=== PATIENT | female | born 1970 | race Caucasian/White ===

== ENCOUNTER 2022-04-18 09:01 | Emergency (ER) | payer MEDICAID ==
[~2022-04-18] VITALS: Ht 162.6 cm; Wt 60.0 kg
[2022-04-18 09:04] VITALS: BP 195/124
== END 2022-04-18 13:27 | disposition home or self-care (01) ==
LOC: ER 09:10
DX: R53.1 Weakness (principal); R42 Dizziness and giddiness; I10 Essential (primary) hypertension
CPT/HCPCS: 93005; 99283